=== PATIENT | female | born 1985 | race Caucasian/White ===

== ENCOUNTER 2018-10-15 17:44 | Emergency (ER) | payer OTHER ==
[~2018-10-15] VITALS: Ht 160 cm; Wt 58.5 kg
[2018-10-15 17:49] VITALS: Ht 160 cm; Wt 58.5 kg
[2018-10-15 19:20] VITALS: BP 129/92
== END 2018-10-15 19:20 | disposition home or self-care (01) ==
LOC: ED 17:44
DX: S16.1XXA Strain of muscle, fascia and tendon at neck level, initial encounter (principal); S60.221A Contusion of right hand, initial encounter; Y04.8XXA Assault by other bodily force, initial encounter; Y93.89 Activity, other specified; Y92.89 Other specified places as the place of occurrence of the external cause; Y99.8 Other external cause status

== ENCOUNTER 2020-03-02 15:57 | Emergency (ER) | payer OTHER ==
[~2020-03-02] VITALS: Ht 157.5 cm; Wt 63.0 kg
[2020-03-02 16:17] VITALS: Ht 157.5 cm; Wt 63.0 kg
[2020-03-02 17:35] LABS: BASOPHIL % 0.4 % (0.2-1.3); PLATELET COUNT 281 x10^3mcL (179-408); RED CELL DISTRIBUTION WIDTH 13.8 % (12.3-17.7)
[2020-03-02 17:37] LABS: UA SPECIFIC GRAVITY >=1.030 (1.005-1.035); microscopic required? YES; urine erythrocyte TRACE (NEGATIVE)
[2020-03-02 20:13] VITALS: BP 130/76
== END 2020-03-02 20:06 | disposition home or self-care (01) ==
LOC: ED 15:57
PROVIDERS: Emergency Medicine
DX: O46.92 Antepartum hemorrhage, unspecified, second trimester (principal); Z3A.15 15 weeks gestation of pregnancy
CPT/HCPCS: 87491; 87591